=== PATIENT | male | born 1945 | race Caucasian/White ===

== ENCOUNTER 2024-01-10 04:22 | Emergency (ER) | payer OTHER, MEDICARE ==
[~2024-01-10] VITALS: Ht 182.9 cm; Wt 100.0 kg
[2024-01-10 04:40] LABS: BASOPHILS 0.6 % (0-2); EOSINOPHILS 0.9 % (0-6); HEMATOCRIT 39.2 % (35.0-50.0); HEMOGLOBIN 12.9 g/dL (12.0-18.0); LYMPHOCYTES 24.4 % (24-44); MCH 28.3 (27-36); MCHC 32.9 g/dl (30-36); MCV 86.1 fl (81-99); MONOCYTES 9.5 % (0-12); NEUTROPHILS 64.6 % (39-80); PLATELET COUNT 248 K/uL (140-440); RBC 4.56 M/ul (4.3-5.7); RDW 21.2 (10.5-15.0)
[2024-01-10 04:56] LABS: ALBUMIN 3.7 g/dL (3.4-5.0); ALBUMIN/GLOBULIN RATIO 1.09 (1.1-2.4); ALCOHOL, MEDICAL <3 ng/dL (<3); ALKALINE PHOSPHATASE 109 U/L (46-116); ALT (SGPT) 33 U/L (14-59); ANION GAP 19.4 (7-21); AST (SGOT) 20 U/L (15-37); BILIRUBIN, TOTAL 1.1 ng/dL (0.2-1.0); BUN/CREATININE RATIO 21.76 (6.0-28.6); CALCIUM 9.7 mg/dL (8.5-10.1); CARBON DIOXIDE 26 mmol/L (21-32); CHLORIDE 106 mmol/L (98-107); CREATININE, SERUM 1.47 mg/dL (0.70-1.30); GLOMERULAR FILTRATION RATE,EST 49 mL/min (>60); POTASSIUM 4.4 mmol/L (3.5-5.1); PROTEIN, TOTAL 7.1 g/dL (6.4-8.2); UREA NITROGEN 32 mg/dL (7-18)
[2024-01-10 05:40] VITALS: BP 108/74
== END 2024-01-10 06:00 ==
LOC: ED 04:22
PROVIDERS: Emergency Medicine
DX: Z04.3 Encounter for examination and observation following other accident (principal); F03.C0 Unspecified dementia, severe, without behavioral disturbance, psychotic disturbance, mood disturbance, and anxiety; Z91.81 History of falling; Z88.0 Allergy status to penicillin; Z88.2 Allergy status to sulfonamides; Z88.6 Allergy status to analgesic agent; Z88.5 Allergy status to narcotic agent; W05.0XXA Fall from non-moving wheelchair, initial encounter
CPT/HCPCS: 36415; 70450; 80053; 85025; 99284-25; G0480